=== PATIENT | male | born 1975 | race Caucasian/White ===

== ENCOUNTER → 2018-04-05 17:05 | Outpatient (CLI) | payer OTHER, SELFPAY ==
--- NOTE | 2018-04-05 | XR_ITS ---
EXAM: XR lumbar spine min 4V HISTORY: Low back pain ORDERING PHYSICIAN: Patti Graham MD PATIENT AGE: 43 years COMPARISON: None FINDINGS: Normal alignment. No fracture or dislocation. No lytic or blastic change. No significant degenerative change. The disc spaces are preserved. IMPRESSION: No acute finding
== END ==
PROVIDERS: Visit Provider Emergency Medicine
DX: M54.5 Low back pain (principal)
CPT/HCPCS: 72110

== ENCOUNTER → 2020-03-06 16:19 | Outpatient (CLI) | payer SELFPAY ==
--- NOTE | 2020-03-06 16:34 | XR_ITS ---
PROCEDURE: XR CHEST CHP 1V CLINICAL HISTORY: COVID 19 PATIENT COMPARISON: No exams were available for comparison FINDINGS: The cardiomediastinal silhouette and pulmonary vascularity are within normal limits. The lungs are clear without infiltrates, suspicious nodules, or pleural effusions. No acute bony abnormalities. IMPRESSION: No acute findings. Dictated by: Francisco Short MD 03/06/2020 17:47 Electronically signed by Francisco Short MD in [place] 03/06/2020 17:47
[2020-03-06 17:30] LABS: Coronavirus 19 IgG Antibody Negative (Negative)
[2020-03-06 17:31] LABS: Coronavirus 19 IgM Antibody Negative (Negative)
[2020-03-06 17:37] LABS: Basophils % 0.4 % (0.1-2.0); Eosinophils # 0.1 K/mm3 (0.0-0.4); Eosinophils % 1.3 % (0.1-12.0); Hematocrit 47.8 % (42.0-52.0); Hemoglobin 16.4 g/dL (14.1-18.0); Lymphocytes # 2.3 K/mm3 (0.7-4.5); Mean Corpuscular HGB Conc 34.3 g/dL (31.8-35.4); Mean Corpuscular Hemoglobin 31.3 pg (27.0-31.2); Mean Corpuscular Volume 91.3 fl (80-94); Mean Platelet Volume 8.2 fl (7.4-10.4); Monocytes # 0.6 K/mm3 (0.1-1.0); Monocytes % 6.1 % (1.7-9.3); Neutrophils # 6.2 K/mm3 (1.8-7.8); Neutrophils % 67.2 % (37.0-80.0); Platelet Count 238 K/mm3 (142-424); Red Blood Count 5.24 M/mm3 (4.60-6.20); Red Cell Distribution Width 13.4 % (11.5-17.5); White Blood Count 9.2 K/mm3 (4.8-10.8)
[2020-03-08 06:46] LABS: Covid-19 Nasal PCR Sendout Lex NOT DETECTED
== END ==
PROVIDERS: PCP Family Medicine; Visit Provider Family Medicine
DX: Z03.818 Encounter for observation for suspected exposure to other biological agents ruled out (principal)
CPT/HCPCS: 36415; 71010; 85025; 86328; U0004

== ENCOUNTER 2020-03-14 14:59 | Emergency (ER) | payer SELFPAY ==
[2020-03-14 15:38] VITALS: BP 140/91; PULSE 89; RESP 20; TEMP 36.7; O2SAT 96; BMI 36.9
--- NOTE | 2020-03-14 15:39 | XR_ITS ---
PROCEDURE: XR CHEST 2V CLINICAL HISTORY: COUGH Smoker. COMPARISON: XR CHEST CHP 1V from 03/06/2020 FINDINGS: No acute bony abnormalities. Mildly increased thoracic kyphosis. The cardiomediastinal silhouette and pulmonary vascularity are within normal limits. There is no demonstrated consolidation, pulmonary vascular congestion or pleural effusion of the visualized lungs. Chronic appearing mildly increased perihilar interstitial markings are seen. A mildly elevated right hemidiaphragm. IMPRESSION: 1. No acute findings. Stable appearing chest. Dictated by: Joanne Fortune 03/14/2020 16:02 Electronically signed by Joanne Fortune in [place] 03/14/2020 16:02
--- NOTE | 2020-03-14 15:48 | HMH.EDUTC ---
[facility] [place] Disposition Clinical Impression: Bronchitis Disposition: Home, Self-Care Condition on Discharge: Good Instructions: Acute Bronchitis, DI for Acute Bronchitis, Cefdinir, Albuterol Oral Inhalation Additional Instructions: ? Start antibiotic today. Be sure to complete entire prescription even if feeling better ? Monitor temp. Tylenol every 4 hours as needed and / or ibuprofen every 6 hours as needed ( As long as your primary care physician has told you that it ok to take both. For fever/aches/pains ER if no less than 101 despite Tylenol or Motrin ? Humidifier/vaporizer or hot steamy shower ? Inhaler every 4-6 hours as needed like we discussed. If unsure how to use it, ask pharmacist to demonstrate how. Should help open airways and improve cough, wheezing, and shortness of breath ? *Start steroid today. Helps with inflammation therefore, cough and wheezing. Follow directions on the package. Reviewed side effects. Patient reports taking them before. Follow up IMMEDIATELY for new or worsening of symptoms OR no noticeable improvement over the next 48-72 hours. 911 immediately for any life threatening symptoms such as chest pain or difficulty breathing Prescriptions: Albuterol Sulfate [Proventil-HFA 90mcg/puff Inh] 1 - 2 puffs IH Q4HP PRN #1 inh PRN Reason: Shortness Of Breath Transmission Status: Pending to [facility] predniSONE [Deltasone 10mg tablet] 10 mg PO BID 5 Days #10 tab Transmission Status: Pending to [facility] Cefdinir [Omnicef 300mg Capsule] 300 mg PO BID #20 cap Transmission Status: Pending to [facility] Referrals: Raoul Faust MD [Primary Care Provider] - As needed Forms: Work/School Release Medical Decision Making - David Inquiry Pt receiving controlled substance: No David was queried for this patient: No Vital Signs: 03/14/20 15:38 Temperature 98.1 F Temperature Source Oral Pulse Rate [Left Brachial] 89 Respiratory Rate 20 Blood Pressure [Left Arm] 140/91 H Blood Pressure Mean [Left Arm] 107 Blood Pressure Source [Left Arm] Automatic Cuff Blood Pressure Position [Left Arm] Sitting 02 Sat by Pulse Oximetry 96 Oxygen Delivery Method Room Air Orders (Tests/Meds): ORDERS Category Date Time Status SARS-CoV-2, OLEG Stat Lab 03/14/20 15:41 Ordered - Radiology Data #1 Image(s): Chest Image Reviewed: Yes I have reviewed radiologist's interpretation Preliminary Findings: Normal/NAD IMPRESSION: 1. No acute findings. Stable appearing chest. Medical Decision Narrative: Patient states that he has taken Steriods before without reaction or complications [facility] [place] HPI - General Stated complaint: soa Time Seen by Provider: 03/14/20 15:48 Mode of Arrival: Ambulatory Source of Information: Patient Limitations: No Limitations Description of Symptoms (Recalled from Triage Doc. by RN): PATIENT C/O SHORTNESS OF BREATH AND PRESSURE/TIGHTNESS IN CHEST X 2 WEEKS. ALSO C/O PRODUCTIVE AND DRY COUGH. HE STATES HE COMPLETED A Z-PACK ON THURSDAY, IS NOT FEELING ANY BETTER HEENT Symptoms (Recalled from RN notes): No Resp Symptoms (Recalled from RN notes): Yes Skin Symptoms (Recalled from RN notes): No MS Symptoms (Recalled from RN notes): No Functional Status (Recalled from RN notes): WNL - History of Present Illness Provider Complaint: Patient states that he hasn't been able to work for over a week due to having cough, chest congestion and over all not feeling well States that at times he has coughed so much that his lungs hurt States that [employer] will not let him come back right now until he gets rechecked States that he is still having cough and over all feeling bad, no fever that he is aware of but at times still feeling like he has come Chest congestion and cough Denies chest pain - Related Data Previous Rx's Medication Instructions Recorded Albuterol Sulfate [Proventil-HFA 1 - 2 puffs IH Q4HP PRN #1 inh 03/14/20 90mcg/puff Inh] Ce
[2020-03-14 16:35] VITALS: BP 140/91; PULSE 89; RESP 20; TEMP 36.7; O2SAT 96
[2020-03-17 09:02] LABS: Covid-19 Nasal PCR Sendout Lex NOT DETECTED
== END 2020-03-14 16:40 | disposition home or self-care (01) ==
PROVIDERS: Emergency Provider Nurse Practitioner; PCP Family Medicine
DX: J20.9 Acute bronchitis, unspecified (principal); Z03.818 Encounter for observation for suspected exposure to other biological agents ruled out; F17.210 Nicotine dependence, cigarettes, uncomplicated
CPT/HCPCS: 71046; 99201; U0004

== ENCOUNTER → 2020-04-04 17:22 | Outpatient (CLI) | payer MEDICAID, SELFPAY ==
--- NOTE | 2020-04-04 17:27 | XR_ITS ---
PROCEDURE: XR FOOT LT MIN 3V CLINICAL INDICATION: FOOT PAIN COMPARISON: No exams were available for comparison FINDINGS: No fracture or dislocation. No lytic or blastic change. There is normal mineralization. There are mild osteoarthritic changes of the 1st metatarsophalangeal joint Other findings:There is a prominent calcaneal spur. Hypertrophic changes are present dorsally at the metatarsal tarsal junction. 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 Increased soft tissue density is present along the distal and medial aspect of the distal phalanx of the 2nd toe. IMPRESSION: Degenerative changes. Os navicularis 3 Soft tissue density along the distal aspect of the 2nd toe Dictated by: Francisco Short MD 04/04/2020 21:58 Francisco Short MD in [place] 04/04/2020 21:58
== END ==
PROVIDERS: PCP Family Medicine; Visit Provider Family Medicine
DX: M79.672 Pain in left foot (principal)
CPT/HCPCS: 73630

== ENCOUNTER → 2020-05-01 14:48 | Outpatient (CLI) | payer MEDICAID, SELFPAY ==
--- NOTE | 2020-05-01 14:57 | XR_ITS ---
PROCEDURE: XR FOOT WT BEARING LT 3V CLINICAL INDICATION: 5th met pain COMPARISON: CR XR FOOT LT MIN 3V from 04/04/2020 FINDINGS: No fracture or dislocation. No lytic or blastic change. There is normal mineralization. Mild osteoarthritic changes are present at the 1st MTP joint not significantly changed. There is an oval lucency involving the distal shaft of the 1st metatarsal which could represent a developing cyst or artifact. There is borderline pes planus with osteoarthritic change at the navicular cuneiform joint and talonavicular joint. 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 Achilles enthesophyte also noted. There is a prominent posterior talar process. Other findings:None. IMPRESSION: Degenerative changes of the left foot as described above Dictated by: Francisco Short MD 05/01/2020 17:47 Francisco Short MD in [place] 05/01/2020 17:47
== END ==
PROVIDERS: PCP Family Medicine; Visit Provider Nurse Practitioner
DX: M79.673 Pain in unspecified foot (principal)
CPT/HCPCS: 73630

== ENCOUNTER → 2020-05-30 16:47 | Outpatient (CLI) | payer MEDICAID, SELFPAY ==
[2020-05-30 17:53] LABS: Basophils % 0.6 % (0.1-2.0); Eosinophils # 0.1 K/mm3 (0.0-0.4); Eosinophils % 1.9 % (0.1-12.0); Hematocrit 46.1 % (42.0-52.0); Hemoglobin 14.7 g/dL (14.1-18.0); Lymphocytes % 28.2 % (10-50); Mean Corpuscular HGB Conc 31.8 g/dL (31.8-35.4); Mean Corpuscular Hemoglobin 29.5 pg (27.0-31.2); Mean Corpuscular Volume 92.8 fl (80-94); Mean Platelet Volume 8.2 fl (7.4-10.4); Monocytes # 0.5 K/mm3 (0.1-1.0); Monocytes % 6.7 % (1.7-9.3); Neutrophils # 4.4 K/mm3 (1.8-7.8); Neutrophils % 62.6 % (37.0-80.0); Platelet Count 247 K/mm3 (142-424); Red Blood Count 4.97 M/mm3 (4.60-6.20); Red Cell Distribution Width 13.5 % (11.5-17.5); White Blood Count 7.1 K/mm3 (4.8-10.8)
[2020-06-01 13:55] LABS: Covid-19 Nasal PCR Sendout Lex Not Detected
== END ==
PROVIDERS: PCP Family Medicine; Visit Provider Family Medicine
DX: Z03.818 Encounter for observation for suspected exposure to other biological agents ruled out (principal)
CPT/HCPCS: 36415; 85025; 87581; 87633; 87798; U0004

== ENCOUNTER 2020-07-02 21:56 | Emergency (ER) | payer OTHER, MEDICAID, SELFPAY ==
[2020-07-02 21:58] VITALS: BP 154/94; PULSE 83; RESP 16; TEMP 36.9; O2SAT 99; BMI 35.6
--- NOTE | 2020-07-02 22:29 | XR_ITS ---
PROCEDURE: XR CHEST 2V CLINICAL HISTORY: SOA, dizziness COMPARISON: CR XR CHEST CHP 1V from 03/06/2020 CR XR CHEST 2V from 03/14/2020 FINDINGS: The cardiomediastinal silhouette and pulmonary vascularity are within normal limits. The lungs are clear without infiltrates, suspicious nodules, or pleural effusions. The there are degenerative changes in the thoracic spine with mild kyphosis IMPRESSION: No change with no acute finding Dictated by: Francisco Short MD 07/03/2020 05:16 Francisco Short MD in [place] 07/03/2020 05:16
[2020-07-02 22:40] LABS: Basophils % 0.5 % (0.1-2.0); Eosinophils # 0.1 K/mm3 (0.0-0.4); Eosinophils % 0.8 % (0.1-12.0); Hemoglobin 15.9 g/dL (14.1-18.0); Lymphocytes # 2.1 K/mm3 (0.7-4.5); Lymphocytes % 29.1 % (10-50); Mean Corpuscular HGB Conc 33.8 g/dL (31.8-35.4); Mean Corpuscular Hemoglobin 30.2 pg (27.0-31.2); Mean Corpuscular Volume 89.4 fl (80-94); Mean Platelet Volume 8.5 fl (7.4-10.4); Monocytes # 0.4 K/mm3 (0.1-1.0); Monocytes % 5.2 % (1.7-9.3); Neutrophils # 4.6 K/mm3 (1.8-7.8); Neutrophils % 64.6 % (37.0-80.0); Platelet Count 220 K/mm3 (142-424); Red Blood Count 5.26 M/mm3 (4.60-6.20); Red Cell Distribution Width 13.9 % (11.5-17.5); White Blood Count 7.1 K/mm3 (4.8-10.8)
[2020-07-02 22:41] LABS: Chloride 107 mmol/L (98-107); Sodium 140 mmol/L (136-145)
[2020-07-02 22:42] LABS: Potassium 3.5 mmoL/L (3.5-5.1)
[2020-07-02 22:44] LABS: Alanine Aminotransferase 30 U/L (12-78); Albumin Level 4.3 g/dl (3.5-5.0); Albumin/Globulin Ratio 1.4 (1.1-1.8); Alkaline Phosphatase 76 U/L (38-126); Anion Gap 10.5 mEq/L (5-15); Aspartate Amino Transferase 37 U/L (17-59); Bilirubin,Total 0.5 mg/dl (0.2-1.3); Blood Urea Nitrogen 11 mg/dl (9-20); Carbon Dioxide 26 mmol/L (22.0-30.0); Creatinine Clearance Estimated 181 mL/min (50-200); Estimated Glomerular Filt Rate 92 ml/min (>60); GFR (African American) 111 ML/MIN (>60); Total Protein,Serum 7.3 g/dl (6.3-8.2)
[2020-07-02 22:45] LABS: Calcium 8.9 mg/dl (8.4-10.2); Glucose 95 mg/dl (74-100)
--- NOTE | 2020-07-02 22:51 | HMH.EDDIZZ ---
ED Disposition Clinical Impression: Near syncope Disposition: Home, Self-Care Condition on Discharge: Good Instructions: Dizziness, Nonvertigo Additional Instructions: see pcp for follow up Referrals: Julio C Pratt MD [Primary Care Provider] - - Critical Care Critical Care Time: No Attestation: On 07/02/20, the high probability of a clinically significant, sudden or life threatening deterioration of the following system(s) required my full and direct attention, intervention and personal management. The time I documented below is in addition to time spent performing reported procedures but includes the following listed in this critical care notation. Medical Decision Making - Medical Records Medical records reviewed: Yes: I reviewed the patient's medical records. - David Inquiry Pt receiving controlled substance: No Vital Signs: 07/02/20 21:58 Temperature 98.5 F Temperature Source Oral Pulse Rate [Left Radial] 83 Respiratory Rate 16 Blood Pressure [Right Arm] 154/94 H Blood Pressure Mean [Right Arm] 114 Blood Pressure Source [Right Arm] Automatic Cuff Blood Pressure Position [Right Arm] Sitting 02 Sat by Pulse Oximetry 99 Oxygen Delivery Method Room Air - Lab Data Lab results reviewed: Yes: I reviewed the patient's lab results. Lab Results 07/02/20 22:21: WBC 7.1, RBC 5.26, Hgb 15.9, Hct 47.0, MCV 89.4, MCH 30.2, MCHC 33.8, RDW 13.9, Plt Count 220, MPV 8.5, Neut % (Auto) 64.6, Lymph % (Auto) 29.1, Blair % (Auto) 5.2, Eos % (Auto) 0.8, Baso % (Auto) 0.5, Neut # (Auto) 4.6, Lymph # (Auto) 2.1, Blair # (Auto) 0.4, Eos # (Auto) 0.1, Baso # (Auto) 0.0 07/02/20 22:21: Sodium 140, Potassium 3.5, Chloride 107, Carbon Dioxide 26, Anion Gap 10.5, BUN 11, Creatinine 0.90, Estimated Creat Clear 181, Estimated GFR 92, Est GFR ( Amer) 111, Glucose 95, Calcium 8.9, Total Bilirubin 0.5, AST 37, ALT 30, Alkaline Phosphatase 76, Troponin I < 0.01, Total Protein 7.3, Albumin 4.3, Globulin 3.0, Albumin/Globulin Ratio 1.4 07/02/20 22:21: SARS-CoV-2 IgG Ab (Rapid) Negative, SARS-CoV-2 IgM Ab (Rapid) Negative 07/02/20 22:21: ESR 23 H 07/02/20 22:21: C-Reactive Protein 4.9 H Result diagrams: 07/02/20 22:21 07/02/20 22:21 Orders (Tests/Meds): ED MEDICATIONS Generic Name Dose Route Start Last Admin Trade Name Freq PRN Reason Stop Dose Admin Sodium Chloride 1,000 mls @ 999 mls/hr 07/02/20 22:45 07/02/20 22:33 Sod Chlor 0.9% 1000ml Bag IV 07/02/20 23:45 999 mls/hr .Q1H1M REINALDO Administration Discontinued Medications Generic Name Dose Route Start Last Admin Trade Name Freq PRN Reason Stop Dose Admin Iopamidol 70 ml 07/02/20 23:56 07/02/20 23:57 Iopamidol-370 (76%);100ml Bottle IV 07/02/20 23:57 70 ml ONCE ONE Administration Ondansetron HCl 4 mg 07/02/20 22:31 07/02/20 22:33 Ondansetron 4mg/2ml Vial IV 07/02/20 22:32 4 mg ONCE ONE Administration Sodium Chloride 40 ml 07/02/20 23:56 07/02/20 23:57 0.9 % Sodium Chloride 50 Ml Vial IV 07/02/20 23:57 40 ml ONCE ONE Administration Sodium Chloride 10 ml 07/02/20 23:56 07/02/20 23:57 Sodium Chloride 0.9% 10ml Syr (Rad Only) IV 07/02/20 23:57 10 ml ONCE ONE Administration ORDERS Category Date Time Status CT Chest w/PE protocol [CT angio chest] Stat Cat Scan 07/02/20 23:23 Taken XR chest 2V Stat Exams 07/02/20 22:29 Taken Covid-19 Nasal PCR ([facility]) Routine Lab 07/02/20 22:43 Received Troponin I Q3H Lab 07/03/20 01:45 Ordered Troponin I Q3H Lab 07/03/20 04:45 Ordered - Radiology Data #1 Image(s): Chest Image Reviewed: Yes I reviewed the patient's radiology image Preliminary Findings: Normal/NAD - CT Data CT Scan: Chest Time Received: 00:[address] Reviewed: Yes: I have viewed the radiologist's interpretation Preliminary Findings: Normal/NAD - ECG Data Tracing #1 Normal Sinus Rhythm: Yes Ischemic changes: non-specific ST-T wave changes - JOSEF Score for Non-Stemi A
[2020-07-02 22:58] LABS: Troponin I < 0.01 ng/ml (0.00-0.034)
[2020-07-02 23:12] LABS: Coronavirus 19 IgG Antibody Negative (Negative); Coronavirus 19 IgM Antibody Negative (Negative)
--- NOTE | 2020-07-02 23:23 | CT_ITS ---
PROCEDURE: CT ANGIO CHEST CLINCIAL INDICATION: SOA Dizziness, shortness of air, smoker COMPARISON: No exams were available for comparison TECHNIQUE: IV Contrast: 70ML Isovue 370 Axial images obtained with sagittal and coronal reformats. All CT scans at the facility use one or more dose reduction, viz: automated exposure control, ma/kV adjustment per patient size (including targeted exams where dose is matched to indication, i.e. head), or iterative reconstruction technique. FINDINGS: HEART AND MEDIASTINAL STRUCTURES: No evidence of pulmonary embolus aortic aneurysm or dissection. No mediastinal or hilar mass. LUNGS AND PLEURAL SPACES: There is a 4 mm subpleural noncalcified nodule in the right upper lobe laterally image 69. Small calcified granulomas present just superior to this in the subpleural region. The no suspicious pulmonary nodules are evident. No lobar consolidation or collapse. BONY STRUCTURES: There are degenerative changes in the thoracic spine. The UPPER ABDOMEN: There 3 exophytic nodular lesions along the superior pole of the left kidney the largest of which is 2 cm and more dense than what 1 would expect for simple cyst. ADDITIONAL FINDINGS: No other significant abnormalities. IMPRESSION: 1. No acute finding. No evidence of pulmonary embolus. 2. Indeterminate left renal nodules the largest of which is 2 cm. Consider ultrasound or MRI for more thorough evaluation. Dictated by: Francisco Short MD 07/03/2020 05:49 Francisco Short MD in [place] 07/03/2020 05:49
[2020-07-02 23:46] LABS: C-Reactive Protein 4.9 mg/L (0-4)
[2020-07-03 00:06] LABS: Erythrocyte Sedimentation Rate 23 mm/hr (0-15)
[2020-07-03 00:50] VITALS: BP 125/75; PULSE 81; RESP 16; TEMP 36.7; O2SAT 98
--- NOTE | 2020-07-03 22:17 | ECG_ITS ---
APPROVED REPORT Exam: Resting ECG HR:76 bpm ECG Measurements Heart Rate 76 AXES MA 180 P 33 QRSd 98 QRS 56 QT 380 T 34 QTc 427 Conclusion Normal sinus rhythm Normal ECG Electronically signed by : Adolfo Conrad, 07/03/2020 06:24:34
== END 2020-07-03 00:52 | disposition home or self-care (01) ==
PROVIDERS: Emergency Provider Emergency Medicine; PCP Family Medicine
DX: R55 Syncope and collapse (principal); F17.210 Nicotine dependence, cigarettes, uncomplicated
CPT/HCPCS: 71046; 71275; 80053; 84484; 85025; 85651; 86140; 86328; 93005; 96365; 96375; 99283; J2405; Q9967; U0003

== ENCOUNTER → 2020-07-11 11:09 | Outpatient (CLI) | payer OTHER, MEDICAID, SELFPAY | PROVIDERS: PCP Family Medicine; Visit Provider Family Medicine | DX: R06.02 Shortness of breath (principal); R05 Cough; R07.89 Other chest pain; F17.210 Nicotine dependence, cigarettes, uncomplicated | CPT/HCPCS: 94060 ==

== ENCOUNTER 2021-01-03 16:02 | Emergency (ER) | payer OTHER, MEDICAID, SELFPAY ==
[2021-01-03 16:10] VITALS: BP 141/85; PULSE 88; RESP 16; TEMP 36.8; O2SAT 96; BMI 36.6
--- NOTE | 2021-01-03 16:29 | HMH.EDUTC ---
[facility] [place] Disposition Clinical Impression: Low back pain Qualifiers: Chronicity: unspecified Back pain laterality: right Sciatica presence: without sciatica Qualified Code(s): M54.5 - Low back pain Disposition: Home, Self-Care Condition on Discharge: Good Instructions: Low Back Pain, DI for Low Back Pain, Methocarbamol, Etodolac Additional Instructions: *Etodolac alida 6 hours with meal as needed for pain/inflammation *Not additional anti-inflammatory like Ibuprofen motrin, aleve, advil with the above amount of Etodolac. You can still take Tylenol every 4 hours as needed if you need something else for pain *Ice 20 minutes every 2 hours for the first 48 hours after the initial injury followed by moist heat every 20 minutes 3-4 times a day to affected area *Muscle relaxer as prescribed as needed for muscle spasms but remember, it WILL cause drowsiness You cannot take it and drive, operate machinery or care for small children. *Keep this area active, no movement leads to more stiffness, However take it easy and avoid heavy lifting pushing or pulling *Follow up with you family doctor if no improvement for further treatment Prescriptions: Etodolac 200 mg PO Q8HP PRN #15 cap PRN Reason: Moderate Pain Transmission Status: Received by [facility] methocarbamoL [Methocarbamol] 500 mg PO BID PRN #10 tab PRN Reason: Muscle Spasm Transmission Status: Received by [facility] Referrals: Julio C Pratt MD [Primary Care Provider] - As needed Forms: Work/School Release Time of Disposition: 16:44 Medical Decision Making - David Inquiry Pt receiving controlled substance: No David was queried for this patient: No Vital Signs: 01/03/21 16:10 01/03/21 16:44 Temperature 98.2 F 98.2 F Temperature Source Oral Pulse Rate 88 Pulse Rate [Right Brachial] 88 Respiratory Rate 16 16 Blood Pressure 141/85 H Blood Pressure [Right Arm] 141/85 H Blood Pressure Mean [Right Arm] 103 Blood Pressure Source [Right Arm] Automatic Cuff Blood Pressure Position [Right Arm] Sitting 02 Sat by Pulse Oximetry 96 Oxygen Delivery Method Room Air [facility] [place] HPI - General Stated complaint: back pain Time Seen by Provider: 01/03/21 16:29 Mode of Arrival: Ambulatory Source of Information: Patient Limitations: No Limitations Description of Symptoms (Recalled from Triage Doc. 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 pulling and tugging at work States that he feels like he pulled something in his left lower back area when he started getting out of bed yesterday States he thought if he took it easy and put heat on it it would help but still having spasm like pain when he turns or moves certain ways Denies loss of control of bowel or bladder - Related Data Previous Rx's Medication Instructions Recorded Etodolac 200 mg PO Q8HP PRN #15 cap 01/03/21 methocarbamoL [Methocarbamol] 500 mg PO BID PRN #10 tab 01/03/21 Allergies Allergy/AdvReac Type Severity Reaction Status Date / Time No Known Allergies Allergy Verified 05/08/20 14:54 - Worker's Comp Is this a Worker's Comp case?: No [facility] History - Hepatitis A Screen Drug use history?: No High risk sexual behaviors?: No History of sexually transmitted infection?: No Currently employed?: No Childcare worker?: No Do you have indoor plumbing?: Yes Do you have electricity?: Yes Attestation statement:: This patient has been screened for Hepatitis A risk factors. I have reviewed the patient's past medical history:
[2021-01-03 16:44] VITALS: BP 141/85; PULSE 88; RESP 16; TEMP 36.8; O2SAT 96
== END 2021-01-03 16:48 | disposition home or self-care (01) ==
PROVIDERS: Emergency Provider Nurse Practitioner; PCP Family Medicine
DX: M62.830 Muscle spasm of back (principal); M54.5 Low back pain; F17.210 Nicotine dependence, cigarettes, uncomplicated
CPT/HCPCS: 99202; G0463

== ENCOUNTER 2021-02-19 20:08 | Emergency (ER) | payer OTHER, SELFPAY ==
[2021-02-19 20:10] VITALS: BP 148/86; PULSE 99; RESP 16; TEMP 36.8; O2SAT 97; BMI 35.8
--- NOTE | 2021-02-19 20:47 | HMH.EDDENT ---
ED Disposition Clinical Impression: Facial cellulitis, Dental caries Disposition: Home, Self-Care Condition on Discharge: Good Instructions: DI for Dental Pain Additional Instructions: use meds and call dentist and pcp Prescriptions: clindamycin HCL [Clindamycin HCl] 300 mg PO TID #30 cap Transmission Status: Pending to [facility] Referrals: Julio C Pratt MD [Primary Care Provider] - - Critical Care Critical Care Time: No Attestation: On 02/19/21, the high probability of a clinically significant, sudden or life threatening deterioration of the following system(s) required my full and direct attention, intervention and personal management. The time I documented below is in addition to time spent performing reported procedures but includes the following listed in this critical care notation. Medical Decision Making - Medical Records Medical records reviewed: Yes: I reviewed the patient's medical records. - David Inquiry Pt receiving controlled substance: No Vital Signs: 02/19/21 20:10 Temperature 98.3 F Temperature Source Oral Pulse Rate [Left Radial] 99 H Respiratory Rate 16 Blood Pressure [Right Arm] 148/86 H Blood Pressure Mean [Right Arm] 106 Blood Pressure Source [Right Arm] Automatic Cuff Blood Pressure Position [Right Arm] Sitting 02 Sat by Pulse Oximetry 97 Oxygen Delivery Method Room Air - Lab Data Lab results reviewed: Yes: I reviewed the patient's lab results. Orders (Tests/Meds): ED MEDICATIONS Generic Name Dose Route Start Last Admin Trade Name Freq PRN Reason Stop Dose Admin Lactated Ringer's 1,000 mls @ 999 mls/hr 02/19/21 20:45 02/19/21 20:42 Lactated Ringer's 1000 Ml Bag IV 02/19/21 21:45 999 mls/hr .Q1H1M REINALDO Administration Ceftriaxone Sodium 1 gm/ 50 mls @ 100 mls/hr 02/19/21 21:00 Sodium Chloride IV 03/05/21 20:59 Q24H REINALDO Protocol Discontinued Medications Generic Name Dose Route Start Last Admin Trade Name Freq PRN Reason Stop Dose Admin Ketorolac Tromethamine 30 mg 02/19/21 20:31 02/19/21 20:42 Ketorolac 30mg/Ml Vial IV 02/19/21 20:32 30 mg ONCE ONE Administration Methylprednisolone Sodium Succinate 125 mg 02/19/21 20:31 02/19/21 20:41 Methylprednisolone Sod Succ 125mg Vial IV 02/19/21 20:32 125 mg ONCE ONE Administration ORDERS Category Date Time Status C-Reactive Protein Stat Lab 02/19/21 20:41 Received Complete Blood Count Auto Diff Stat Lab 02/19/21 20:41 Received Comprehensive Metabolic Panel Stat Lab 02/19/21 20:41 Received Erythrocyte Sedimentation Rate Stat Lab 02/19/21 20:41 Received Procalcitonin Stat Lab 02/19/21 20:41 Received Medical Decision Narrative: facial cellulitis sec to dental Dental HPI - General Chief complaint: Dental/Oral Stated complaint: Face swollen on L side Time Seen by Provider: 02/19/21 20:15 Mode of Arrival: Ambulatory Source of Information: Patient, Medical Record Limitations: No Limitations Description of Symptoms (Recalled from ER Triage Doc. by RN): Pt reports that he awoke today around 1pm and noticed his face was swelling on the left side. Pt says he tried to go into work tonight and just couldn't handle it . Pt says he has mild pain in left jaw. Denies trouble breathing or swallowing. Pt says he has 8 bad teeth and hasent seen his dentist in 8 years and suspects it could be his teeth. Denies fever. Denies N/V/D. Denies injury - History of Present Illness HPI Narrative: acute lt facial swelling which started this pm - has hx of poor dentition Onset (ago): hour(s) Severity: moderate Context: history of dental caries, poor dental care Associated symptoms: other (facial swelling ) Treatment prior to arrival: none - Related Data Previous Rx's Medication Instructions Recorded Etodolac 200 mg PO Q8HP PRN #15 cap 01/03/21 methocarbamoL [Methocarbamol] 500 mg PO BID PRN #10 tab 01/03/21 clindamycin HCL [Clindamycin HCl] 300 m
[2021-02-19 20:51] LABS: Basophils % 0.3 % (0.1-2.0); Eosinophils % 0.3 % (0.1-12.0); Hematocrit 43.9 % (42.0-52.0); Lymphocytes # 1.8 K/mm3 (0.7-4.5); Lymphocytes % 15.1 % (10-50); Mean Corpuscular HGB Conc 34.2 g/dL (31.8-35.4); Mean Corpuscular Hemoglobin 29.7 pg (27.0-31.2); Mean Corpuscular Volume 86.9 fl (80-94); Mean Platelet Volume 8.1 fl (7.4-10.4); Monocytes # 0.4 K/mm3 (0.1-1.0); Monocytes % 3.7 % (1.7-9.3); Neutrophils # 9.6 K/mm3 (1.8-7.8); Neutrophils % 80.6 % (37.0-80.0); Platelet Count 265 K/mm3 (142-424); Red Blood Count 5.05 M/mm3 (4.60-6.20); White Blood Count 11.9 K/mm3 (4.8-10.8)
[2021-02-19 20:54] VITALS: BP 120/68; PULSE 90; O2SAT 97
--- NOTE | 2021-02-19 20:56 | PC.NURSE ---
LR changed to NS
[2021-02-19 21:00] VITALS: BP 120/76; PULSE 88; O2SAT 98
[2021-02-19 21:00] LABS: Alanine Aminotransferase 24 U/L (12-78); Albumin Level 4.4 g/dl (3.5-5.0); Albumin/Globulin Ratio 1.5 (1.1-1.8); Alkaline Phosphatase 81 U/L (38-126); Anion Gap 12.7 mEq/L (5-15); Aspartate Amino Transferase 24 U/L (17-59); Bilirubin,Total 0.4 mg/dl (0.2-1.3); Blood Urea Nitrogen 11 mg/dl (9-20); Calcium 8.8 mg/dl (8.4-10.2); Carbon Dioxide 22 mmol/L (22.0-30.0); Chloride 109 mmol/L (98-107); Creatinine Clearance Estimated 211 mL/min (50-200); Estimated Glomerular Filt Rate 105 ml/min (>60); GFR (African American) 127 ML/MIN (>60); Globulin 2.9 g/dL (1.3-3.2); Glucose 101 mg/dl (74-100); Potassium 3.7 mmoL/L (3.5-5.1); Sodium 140 mmol/L (136-145); Total Protein,Serum 7.3 g/dl (6.3-8.2)
[2021-02-19 21:05] LABS: C-Reactive Protein 9.7 mg/L (0-4)
[2021-02-19 21:13] VITALS: BP 129/89; PULSE 85; RESP 18; TEMP 36.7; O2SAT 99
[2021-02-19 21:19] LABS: Procalcitonin 0.045 ng/mL (0.0-2.0)
[2021-02-19 21:52] LABS: Erythrocyte Sedimentation Rate 14 mm/hr (0-15)
== END 2021-02-19 21:15 | disposition home or self-care (01) ==
PROVIDERS: Emergency Provider Emergency Medicine; PCP Family Medicine
DX: L03.211 Cellulitis of face (principal); K02.9 Dental caries, unspecified; F17.210 Nicotine dependence, cigarettes, uncomplicated
CPT/HCPCS: 80053; 84145; 85025; 85651; 86140; 96365; 96375; 99282

== ENCOUNTER → 2022-01-17 16:24 | Outpatient (CLI) | payer OTHER, SELFPAY | PROVIDERS: PCP Physician Assistant; Visit Provider Physician Assistant | DX: U07.1 COVID-19 (principal) | CPT/HCPCS: C9803; U0003; U0005 ==

== ENCOUNTER → 2023-05-05 12:25 | Outpatient (CLI) | payer OTHER, SELFPAY ==
[2023-05-05 13:23] LABS: Basophils # 0.1 K/mm3 (0-0.2); Basophils % 0.7 % (0.1-2.0); Eosinophils # 0.1 K/mm3 (0.0-0.4); Eosinophils % 1.3 % (0.1-12.0); Hematocrit 53.8 % (42.0-52.0); Lymphocytes # 2.2 K/mm3 (0.7-4.5); Lymphocytes % 29.4 % (10-50); Mean Corpuscular HGB Conc 31.7 g/dL (31.8-35.4); Mean Corpuscular Hemoglobin 28.9 pg (27.0-31.2); Mean Corpuscular Volume 91.1 fl (80-94); Mean Platelet Volume 8.7 fl (7.4-10.4); Monocytes # 0.4 K/mm3 (0.1-1.0); Neutrophils # 4.8 K/mm3 (1.8-7.8); Neutrophils % 63.6 % (37.0-80.0); Platelet Count 197 K/mm3 (142-424); White Blood Count 7.6 K/mm3 (4.8-10.8)
== END ==
PROVIDERS: PCP Family Medicine; Visit Provider Nurse Practitioner Family
DX: Z20.822 Contact with and (suspected) exposure to COVID-19 (principal)
CPT/HCPCS: 36415; 85025; 87275; 87276; 87635

== ENCOUNTER → 2023-06-10 15:42 | Outpatient (CLI) | payer OTHER, SELFPAY ==
[2023-06-10 15:50] LABS: Influenza A, PCR Not Detected (NotDetected); Influenza B, PCR Not Detected (NotDetected)
[2023-06-10 16:45] LABS: Coronavirus 19, PCR Detected (NotDetected)
== END ==
PROVIDERS: PCP Physician Assistant; Visit Provider Physician Assistant
DX: U07.1 COVID-19 (principal); Z20.822 Contact with and (suspected) exposure to COVID-19
CPT/HCPCS: 87636